=== PATIENT | female | born 1950 | race Hispanic/Latino ===

== ENCOUNTER 2018-03-18 09:06 | Outpatient (CLI) | payer MEDICARE | END 2018-03-18 09:07 | disposition home or self-care (01) | LOC: PAT 09:06 | DX: Z01.818 Encounter for other preprocedural examination (principal); L98.8 Other specified disorders of the skin and subcutaneous tissue ==

== ENCOUNTER 2018-07-10 13:05 | Outpatient (CLI) | payer MEDICARE | END 2018-07-10 13:06 | disposition home or self-care (01) | LOC: OPLAB 13:05 ==